=== PATIENT | male | born 1985 | race Caucasian/White ===

== ENCOUNTER 2018-08-19 05:32 | Emergency (ER) | payer SELFPAY ==
[~2018-08-19] VITALS: Ht 175.3 cm; Wt 81.6 kg
[2018-08-19] MEDS ORDERED: LIDO:MAALOX 1:1 20 ML SINGLE DOSE. SWSW ONE (06:15)
[2018-08-19] MEDS ORDERED: ONDANSETRON PF 4 MG/2 ML VIAL. IV ONE (06:15)
[2018-08-19] MEDS ORDERED: IV NORMAL SALINE 1000ML BAG 1,000 ML IV SCH (06:15)
--- NOTE | 2018-08-19 06:55 | PHYS DOC ---
Past Medical History Past Medical History: Anxiety Past Surgical History: No Surgical History Alcohol Use: Rarely Drug Use: Marijuana Adult General Chief Complaint Chief Complaint: DIFFICULTY SWALLOWING HPI HPI Patient is a 33 year old male with complaining of unable to swallow. Patient states he had a cheeseburger 3 days ago that felt stuck in his throat and since then has had discomfort feeling in his throat and had problems swallowing. Patient states he was not given swallow liquid since yesterday and had 3 episodes of vomiting. Patient does not have problems swallowing saliva. 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 Patient obtaining of substernal area pain from throat to epigastric area that getting worse with swallowing. Patient denies diarrhea, abdominal pain, fever and chills, shortness of breath, having the same problem. Review of Systems Review of Systems Constitutional: Denies fever or chills [] Eyes: Denies change in visual acuity, redness, or eye pain [] HENT: Denies nasal congestion or sore throat [] Respiratory: Denies cough or shortness of breath [] Cardiovascular: No additional information not addressed in HPI [] GI: Denies abdominal pain, bloody stools or diarrhea , reports nausea and vomiting[] : Denies dysuria or hematuria [] Musculoskeletal: Denies back pain or joint pain [] Integument: Denies rash or skin lesions [] Neurologic: Denies headache, focal weakness or sensory changes [] Endocrine: Denies polyuria or polydipsia [] All other systems were reviewed and found to be within normal limits, except as documented in this note. Current Medications Current Medications Current Medications Medications (Trade) Dose Ordered Sig/Calixto Start Time Stop Time Status Last Admin Dose Admin Multi-Ingredient Mouthwash/Gargle (Gi Cocktail) 20 ml 1X ONCE 08/19/18 06:15 08/19/18 06:16 DC 08/19/18 07:14 20 ML Ondansetron HCl (Zofran) 4 mg 1X ONCE 08/19/18 06:15 08/19/18 06:16 DC Sodium Chloride 1,000 ml @ 1,000 mls/hr Q1H 08/19/18 06:15 08/19/18 07:14 DC Allergies Allergies Allergies Coded Allergies Type Severity Reaction Last Updated Verified No Known Drug Allergies 08/19/18 No Physical Exam Physical Exam Constitutional: Well developed, well nourished, mild distress, non-toxic appearance. [] HENT: Normocephalic, atraumatic, oropharynx moist, mild uvula edema, no oral exudates, nose normal. [] Eyes: PERRLA, EOMI, conjunctiva normal, no discharge. [] Neck: Normal range of motion, no tenderness, supple, no stridor. [] Cardiovascular:Heart rate regular rhythm, no murmur [] Lungs & Thorax: Bilateral breath sounds clear to auscultation [] Abdomen: Bowel sounds normal, soft, no tenderness, no masses, no pulsatile masses. [] Skin: Warm, dry, no erythema, no rash. [] Back: No tenderness, no CVA tenderness. [] Extremities: No tenderness, no cyanosis, no clubbing, ROM intact, no edema. [] Neurologic: Alert and oriented X 3, normal motor function, normal sensory function, no focal deficits noted. [] Psychologic: Affect anxious, judgement normal, mood normal. [] Current Patient Data Vital Signs Vital Signs Date Time Temp Pulse Resp B/P (MAP) Pulse Ox O2 Delivery O2 Flow Rate FiO2 08/19/18 08:00 74 99 Room Air 08/19/18 07:00 18 141/75 (97) 08/19/18 05:43 98.2 98.2 EKG EKG [] Radiology/Procedures Radiology/Procedures [] Course & Med Decision Making Course & Med Decision Making Evaluation of patient in ER showed 34-year-old male patient with complaining of problems swallowing for the last3 days. Patient specifically GI cocktail and was able to swallow without problem. Patient had several unsuccessful try for IV line and blood tests and didn't want to have anymore try to start IV line more obtained. Patient states he feels better and just wants to few days off of his job to not have exposure to the paint. I've spoken with the patient and/or caregivers. I've explained the patient's co ndition, diagnosis and treatment plan based on information available to me at this time. I've answered the patient's and/or caregivers questions and addressed any concerns. The patient and/or caregivers have a good understanding the patient's diagnosis, condition and treatment plan as can be expected at this point. Vital signs have been stabilized. The patient's condition is stable for discharge from the emergency department. The patient will pursue further outpatient evaluation with her primary care provider or other designated consulting physician as outlined in the discharge instructions. Patient and/or caregivers are agreeable to this plan of care and follow-up instructions have been explained in detail. The patient and/or caregivers have received these instructions in written format and expressed understanding of these discharge instructions. The patient and her caregivers are aware that if any significant change in condition or worsening of symptoms should prompt him to immediately return to this of the closest emergency department. If an emergent department is not readily available I would encourage him to call 911. Dragon Disclaimer Dragon Disclaimer This electronic medical record was generated, in whole or in part, using a voice recognition dictation system. Departure Departure Impression: Primary Impression: Uvular edema Additional Impressions: Dysphagia Nausea and vomiting Laceration of skin of right elbow Disposition: HOME, SELF-CARE ( at 0737) Condition: IMPROVED Referrals: NO PCP (PCP) Patient Instructions: Dysphagia, Nausea and Vomiting, Uvulitis, Wound Care, [id number] Additional Instructions: Drink plenty of liquids Follow-up with your primary care physician in 3-5 days Return to ER if not getting better Scripts Lidocaine HCl (Lidocaine HCl Viscous) 15 Ml Solution 5 ML MM TID, #120 ML Prov: WILL FRANKLIN MD 08/19/18 Promethazine Hcl (PROMETHAZINE HCL) 25 Mg Tablet 1 TAB PO PRN Q6HRS for nausea and vomiting, #20 TAB Prov: WILL FRANKLIN MD 08/19/18 Problem Qualifiers Additional Impressions: Dysphagia Dysphagia type: unspecified Qualified Codes: R13.10 - Dysphagia, unspecified Nausea and vomiting Vomiting type: unspecified Vomiting Intractability: unspecified Qualified Codes: R11.2 - Nausea with vomiting, unspecified Laceration of skin of right elbow Encounter type: subsequent encounter Qualified Codes: S51.011D - Laceration without foreign body of right elbow, subsequent encounter WILL FRANKLIN MD August 19, 2018 06:55
[2018-08-19 07:00] VITALS: BP 141/75
[2018-08-19] MEDS ORDERED: LIDO15SO2 MM ×3 (07:45→07:58)
[2018-08-19] MEDS ORDERED: PROM25TA10 PO ×3 (07:45→07:58)
== END 2018-08-19 08:30 | disposition home or self-care (01) ==
LOC: ER 05:32
DX: K13.79 Other lesions of oral mucosa (principal); R13.10 Dysphagia, unspecified; S51.011A Laceration without foreign body of right elbow, initial encounter; R11.2 Nausea with vomiting, unspecified; F41.9 Anxiety disorder, unspecified; X58.XXXA Exposure to other specified factors, initial encounter; Y93.89 Activity, other specified; Y92.89 Other specified places as the place of occurrence of the external cause; Y99.8 Other external cause status
CPT/HCPCS: 99282; 99283